=== PATIENT | male | born 1945 | race Caucasian/White ===

== ENCOUNTER 2017-01-07 14:52 | Emergency (ER) | payer MEDICARE, BC ==
[~2017-01-07] VITALS: Ht 182.8 cm; Wt 93.0 kg
[2017-01-07] MEDS ORDERED: PREDNISONE10 MG PO (15:26)
== END 2017-01-07 15:49 | disposition home or self-care (01) ==
LOC: ED 14:52
DX: T63.441A Toxic effect of venom of bees, accidental (unintentional), initial encounter (principal); Y92.89 Other specified places as the place of occurrence of the external cause; R03.0 Elevated blood-pressure reading, without diagnosis of hypertension; Z88.0 Allergy status to penicillin